=== PATIENT | female | born 2000 | race Two or more races ===

== ENCOUNTER 2025-09-22 22:22 | Inpatient (IN) | payer MEDICAID, OTHER ==
[~2025-09-22] VITALS: Ht 157.5 cm; Wt 108.4 kg
[2025-09-22] MEDS ORDERED: OXYTOCIN 10UNIT/ML 1ML VIAL IV ONE (22:23)
[2025-09-22] MEDS: OXYTOCIN 10UNIT/ML 1ML VIAL IM ONE (23:45)
--- NOTE | 2025-09-22 23:52 | DVHHP2 ---
OB CC & HPI Date Date of Admission: Sep 22, 2025 Patient Identification: : 3 Para: 2 EDC: Sep 30, 2025 EGA: 38.6wks Chief Complaints: Reason for admission: active labor History of Present Complaints 25 y/o IUP@38.6wks presents in active labor. States contractions began around 1800 q2 mins of strong intensity, states leaking of fluid around 2000. States she is in pain and ready to push. No records available. States she receives care at [facility], with Dr. Pollack. Denies complications. OB hx: NSVDx2, uncomplicated Past Medical History Cardiac: No pertinent Hx Pulmonary: No pertinent Hx Central Nervous System: No pertinent Hx GI: No pertinent Hx Hemotology/Oncology: No pertinent Hx Hepatobiliary: No pertinent Hx Psychiatric: No pertinent Hx Musculoskeletal: No pertinent Hx Rheumotologic: No pertinent Hx Infectious Disease: No peritnent Hx ENT: No pertinent Hx Renal/: No pertinent Hx Endocrine: No pertinent Hx Dermatology: No pertinent Hx Past Surgical History: No pertinent Hx Others Pt denies pertinent medical hx. No records available. OB History OB History Care: Other (None available, pt states adequate. ) Obstetrical Complications: None (per pt) Medical Complications: None (per pt) Allergies: Coded Allergies: NO KNOWN ALLERGIES (Unverified , 09/22/25) Allergies Denies Home Meds PNV Family & Social History Family/Social History Past Family/Social History: Denies Blood Type: Unknown Rubella: unknown RPR/VDRL: Unknown GBS Status: Unknown HBsAG: Unknown Review of Systems Constitutional: No symptom reported Ears, Nose, & Throat: No symptom reported Eyes: No symptom reported Pulmonary/Respiratory: No symptom reported Cardiovascular: No symptom reported Gastrointestinal: No symptom reported Genitourinary: No symptom reported Musculoskeletal: No symptom reported Skin: No symptom reported Psychiatric: No symptom reported Endocrine: No symptom reported Hemotologic/Lymphatic: No symptom reported OB Admission Exam Physical Exam Vitals: VSS, See CPN HEENT: TMs Normal, Fontanelles Normal, Nasal Mucosa Normal, Eyes non-injected, Oropharynx Normal, PERRLA, Moist Membranes, EOMI Heart: Rhythm Normal Lungs: Clear Abdomen: Gravid Extremities: Normal Reflexes: Normal Cervical Dilatation: 8cm Effacement: Other (90) Station: +3 Membranes: Intact Heart Rate: 130's (via doppler, unable to utilize EFM due to constant maternal position changes) Contractions on Admission: < 5 Minutes Apart Intensity: Moderate OB Plan Plan Admitting Diagnosis: 25yo IUP@38.6wks Active labor +FHTs Plan: Expectant Management Other Plan: P: Admit to L&D for expectant mgmt Informed consent obtained Doppler FHT q5min Routine labs ordered Anticipate Visit Coding OBGYN Date of Service: Sep 22, 2025 Billing Provider: NEEL DIXNO CNM MECHANICAL ENGINEERING TECHNICIAN Common Visit Codes: [id number] INP/OBS CARE (MOD) MECHANICAL ENGINEERING TECHNICIAN Procedure Codes: 22958-43- NON-STRESS TEST NOREEN TELLES STUDENTRIW Sep 22, 2025 23:52
--- NOTE | 2025-09-22 23:55 | LDN2 ---
Labor and Delivery Note Date 09/22/25 Age 25 3 Para 3 now EDC 09/30/25 EGA 38.6wks Diagnosis Active labor then precipitous Vaginal Delivery: VTX Vacuum Assisted: No Placenta: Spontaneous Sex: Female Weight pending Apgars 8/9 Nuchal Cord Transected: No Amniotic Fluid: Clear Anesthesia none Episiotomy: No Extension: No Repaired with n/a EBL QBL 100ml Labs to be drawn Complications none Conditions stable Hothouse Worker Somu Comments/Significant Med Kandice At 2254 this 25yo now delivered a viable Female by w/ APGARS 8/9. ROP presentation. placed skin to skin on pts chest. Cord clamped and cut after pulsation ceased. Cord blood sent. Pitocin IV bolus started. Intact 3- vessel cord placenta delivered spontaneously, Griffin, marginal cord insertion noted. Placenta sent to pathology. Patient had no anesthesia. Cervix/vagina/labia/perineum inspected (intact). No functioning IV access available, Pitocin 10units IM given. Fundus at U, firm, midline, and light lochia. QBL 100ml. VSS. Count correct x2. Patient to care and baby to couplet care, both stable. Visit Coding OBGYN Date of Service: Sep 22, 2025 Billing Provider: NEEL DIXON CNM RADIO DESPATCHER Common Visit Codes: PROCEDURE ONLY RADIO DESPATCHER Procedure Codes: 98469-[id number] DEL INCLUDING NOREEN TELLES STUDENTMDW Sep 22, 2025 23:55
[2025-09-23] VITALS (7 sets, daily range): BP systolic 103–121; BP diastolic 60–79; PULSE 62–77; RESP 16–18; TEMP 98–98.4; O2SAT 96–98
[2025-09-23] MEDS: IBUPROFEN 600 MG TAB PO PRN (00:26)
[2025-09-23] MEDS: PHISODERM TOP SOLN 240ML BTL TOP PRN (00:27)
[2025-09-23] MEDS: DERMOPLAST 60ML BOTTLE TOP PRN (00:27)
[2025-09-23] MEDS: WITCH HAZEL-GLYCERIN PAD TOP PRN (00:27)
[2025-09-23] MEDS: LACTATED RINGER'S 1,000 ML IV SCH (00:28)
[2025-09-23 00:47] LABS: Hematocrit 32.7 % (36.0-46.0); Hemoglobin 10.7 g/dL (12.2-16.2); Mean Corpuscular Hemoglobin 26.8 pg (28.0-32.0); Mean Corpuscular Volume 82.1 fL (80.0-100.0); Nucleated Red Blood Cells % 0.0 %
[2025-09-23 00:54] LABS: INR 0.93 (0.9-1.15); Partial Thromboplastin Time 24.1 SEC (24.5-34.5); Prothrombin Time 9.9 sec (9.3-11.8)
[2025-09-23 00:55] LABS: Alanine Aminotransferase 12 U/L (7-40); Albumin 4.3 g/dL (3.2-4.8); Anion Gap 13 (5-15); BUN/Creatinine Ratio 12.1 (10.0-20.0); Calcium 9.4 mg/dL (8.7-10.4); Carbon Dioxide 23 mmol/L (20-31); Chloride 103 mmol/L (98-107); Glucose 82 mg/dL (74-106); Sodium 139 mmol/L (136-145); Total Protein 7.6 g/dL (5.7-8.2)
[2025-09-23 00:56] LABS: Alkaline Phosphatase 163 U/L (46-116); Bilirubin, Total 0.3 mg/dL (0.2-1.0); Blood Urea Nitrogen 8 mg/dL (9-23); Potassium 3.5 mmol/L (3.5-5.1)
[2025-09-23] MEDS: ACETAMINOPHEN 325 MG TAB PO PRN (01:51)
[2025-09-23] MEDS: LACT. RINGERS/OXYTOCIN 20UNITS 500 ML IV ONE ×2 (04:59→05:00)
--- NOTE | 2025-09-23 05:50 | DVHPN2 ---
Progress Note Date Seen: Sep 23, 2025 Subjective S: bleeding is less, eating food without issues, denies lightheaded/dizziness, pain well controlled with oral medications, no concerns with urinating, passing flatus, no BM yet, ambulating well, bottle feeding well vital signs Vital Sign Date Time Temp Pulse Resp B/P (MAP) Pulse Ox O2 Delivery O2 Flow Rate FiO2 09/23/25 02:30 98.3 77 18 113/72 (86) 96 98.3 09/23/25 02:00 Room Air Total Intake and Output 09/22/25 09/22/25 09/23/25 15:00 23:00 07:00 Output Total 500 ml Balance -500 ml medications Current Medications Medications Dose Ordered Sig/Chary Route Start Time Stop Time Status Last Admin Dose Admin Lactated Ringer's 1,000 ml @ 125 mls/hr Q8H IV 09/22/25 23:45 09/23/25 00:28 125 MLS/HR Nighat Kern 1 pad PRN PRN TOP 09/22/25 23:45 09/23/25 00:27 1 PAD Sodium Lauryl Sulfate 240 ml PRN PRN TOP 09/22/25 23:45 09/23/25 00:27 240 ML Benzocaine 1 applic PRN PRN TOP 09/22/25 23:45 09/23/25 00:27 1 APPLIC Ibuprofen 600 mg Q6HP PRN PO 09/22/25 23:45 09/23/25 00:26 600 MG Acetaminophen 650 mg Q6HPRN PRN PO 09/22/25 23:45 09/23/25 01:51 650 MG Prenat Multivit/ Flipping Machine Operator/Iron/Folic Ac 1 DAILY PO 09/23/25 10:00 laboratory and microbiology Laboratory Tests 09/22/25 23:59 Test 09/22/25 23:59 Range/Units Serum Glucose 82 74-106 mg/dL Objective O: VSS Chest: heart sounds normal and lung sounds clear bilaterally Abd: soft, non-tender, fundus at U/firm/midline, active bowel sounds, no rebound or guarding Perineum: intact, no erythema/edema noted Ext: Non-tender, No edema, 2+ BLE DTRs Lochia: minimal See lab results Problems(with codes): (1) Precipitous delivery (2) (normal spontaneous vaginal delivery) (3) Intact perineum (4) Iron deficiency anemia Assessment/Plan A: 25yo now PPD#1 s/p Rubella Immune Bottle feeding baby Pain control with PO medications Bowel regimen P: Continue with routine PP care Plan discussed with: Patient Fluid Accumulation (N/A): N/A Reduced Poly Operator Strength (Non-Sev: N/A NOREEN TELLES STUDENTMDW Sep 23, 2025 05:50
[2025-09-23 05:55] LABS: Urine Protein, UAD 2+ (Negative)
[2025-09-23 05:56] LABS: Barbiturate Scree,Urine Neg (NEGATIVE)
[2025-09-23 05:57] LABS: Amphetamine Screen, Urine Neg (NEGATIVE); Benzodiazephine Screen, Urine Neg (NEGATIVE); Cannabinoid Screen, Urine Neg (NEGATIVE); Cocaine Screen, Urine Neg (NEGATIVE); Opiate Scree,Urine Neg (NEGATIVE); Phencyclidine Screen, Urine Neg (NEGATIVE)
[2025-09-23] MEDS ORDERED: PRENATAL VITAMIN TAB PO SCH (10:00)
--- NOTE | 2025-09-23 18:22 | DVHDS2 ---
NOREEN TELLES [facility] 09/23/25 1822: Physician Discharge Progress N Final Diagnosis: Problems List: (1) (normal spontaneous vaginal delivery) (2) 38 weeks gestation of (3) Precipitous delivery (4) Intact perineum (5) Iron deficiency anemia Condition on Discharge: Good Disposition: Home SNF Discharge Will this Physician continue t: Yes Discharge Instructions: Diet: Regular Activity: Light activity Follow Up Care: Discharge Statement: "Patient was advised to return to the ER or call 911 if any headaches, dizziness, shortness of breath, chest pain, abdominal pain, bleeding, fevers, or worsening of medical condition. Patient was counseled about treatment plan, medications, possible side effects, patientverbalized understanding. All questions were answered to the best of my ability. This discharge took greater then 30 minutes in planning, reviewing documentation, counseling the patient, and discussing with other team members." NEEL DIXON 09/23/25 1827: NOREEN TELLES [facility] Sep 23, 2025 18:22 NEEL DIXON [facility] Sep 23, 2025 18:27
[2025-09-23] MEDS ORDERED: FER325T PO (18:54)
[2025-09-23] MEDS ORDERED: IBU600T PO (18:54)
[2025-09-23] MEDS ORDERED: PREN-96 PO (18:54)
[2025-09-23] MEDS ORDERED: DOCU-94 PO (18:54)
--- NOTE | 2025-09-24 00:32 | DVHPN2 ---
Progress Note Date Seen: Sep 24, 2025 Subjective S: bleeding is less, eating food without issues, denies lightheaded/dizziness, pain well controlled with oral medications, no concerns with urinating, passing flatus, no BM yet, ambulating well, bottle feeding well. Would like to go home in the am. vital signs VSS Vital Sign Date Time Temp Pulse Resp B/P (MAP) Pulse Ox O2 Delivery O2 Flow Rate FiO2 09/23/25 23:18 98.4 72 16 119/73 (88) 98 98.4 09/23/25 18:30 Room Air 0.0 Total Intake and Output 09/23/25 09/23/25 09/24/25 15:00 23:00 07:00 Output Total 200 ml Balance -200 ml medications Current Medications Medications Dose Ordered Sig/Chary Route Start Time Stop Time Status Last Admin Dose Admin Lactated Ringer's 1,000 ml @ 125 mls/hr Q8H IV 09/22/25 23:45 09/23/25 00:28 125 MLS/HR Nighat Concha 1 pad PRN PRN TOP 09/22/25 23:45 09/23/25 00:27 1 PAD Sodium Lauryl Sulfate 240 ml PRN PRN TOP 09/22/25 23:45 09/23/25 00:27 240 ML Benzocaine 1 applic PRN PRN TOP 09/22/25 23:45 09/23/25 00:27 1 APPLIC Ibuprofen 600 mg Q6HP PRN PO 09/22/25 23:45 09/23/25 00:26 600 MG Acetaminophen 650 mg Q6HPRN PRN PO 09/22/25 23:45 09/23/25 01:51 650 MG Prenat Multivit/ Pediatric Audiologist/Iron/Folic Ac 1 DAILY PO 09/23/25 10:00 laboratory and microbiology Laboratory Tests 09/22/25 23:59 Test 09/22/25 23:59 Range/Units Serum Glucose 82 74-106 mg/dL Objective VSS Chest: heart sounds normal and lung sounds clear bilaterally Abd: soft, non-tender, fundus 1-U/firm/midline, active bowel sounds, no rebound or guarding Perineum: no erythema/edema noted Ext: Non-tender, No edema, 2+ BLE DTRs Lochia: minimal See lab results Problems(with codes): (1) Precipitous delivery (2) (normal spontaneous vaginal delivery) (3) Intact perineum Assessment/Plan A: 25yo now PPD#2 s/p Rubella Immune Bottle feeding baby Pain control with PO medications Bowel regimen P: D/C home today Rx sent to pharmacy precautions and preeclampsia warning signs reviewed F/U with primary OB office in 2 weeks Plan discussed with: Patient Fluid Accumulation (N/A): N/A Reduced Pressure Tester Strength (Non-Sev: N/A NOREEN TELLES STUDENTMDW Sep 24, 2025 00:32
--- NOTE | 2025-09-24 00:40 | DVHDS2 ---
Physician Discharge Progress N Final Diagnosis: Status post Condition on Discharge: Good Disposition: Home SNF Discharge Will this Physician continue t: Yes Discharge Instructions: Diet: Regular Activity: Light activity Activity comment: Nothing in Vagina for 6 weeks Medications: PNV, Colace Follow Up Care: Discharge Statement: "Patient was advised to return to the ER or call 911 if any headaches, dizziness, shortness of breath, chest pain, abdominal pain, bleeding, fevers, or worsening of medical condition. Patient was counseled about treatment plan, medications, possible side effects, patientverbalized understanding. All questions were answered to the best of my ability. This discharge took greater then 30 minutes in planning, reviewing documentation, counseling the patient, and discussing with other team members." Visit Coding OBGYN Date of Service: Sep 24, 2025 Billing Provider: NEEL DIXON CNM CROSSING TENDER Common Visit Codes: [id number] INP/OBS CARE(MOD) CROSSING TENDER Procedure Codes: 21253-[id number] DEL INCLUDING NOREEN TELLES STUDENTPAW Sep 24, 2025 00:39
--- NOTE | 2025-09-24 00:51 | DVHDS2 ---
Obstetrics Discharge Summary Obstetrics Discharge Summary Date of Admission: Sep 22, 2025 Date of Discharge: Sep 24, 2025 Reason For Admission: Onset of Labor Procedures: None Intrapartum Procedures: Spontaneous vaginal deliv Procedures: None Operative Complicat: None Discharge Diagnosis: Term -Delivered Discharge Information: Activity (as tolerated, no heavy lifting and nothing in the vagina for 6 weeks), Diet (Routine), Medications (rx sent), Instructions (Routine), Discharge to (Home), Accompanied by (partner), Discarge date (09/24/25) Visit Coding OBGYN Date of Service: Sep 24, 2025 Billing Provider: NEEL DIXON CNM SPRINKLER INSPECTOR Common Visit Codes: 17436-AVO/OBS DISCH DAY <30MIN NOREEN TELLES STUDENTMDW Sep 24, 2025 00:51
[2025-09-24 07:00] VITALS: BP 112/76; PULSE 60; RESP 18; TEMP 98; O2SAT 99
[2025-09-24 11:00] VITALS: BP 107/76; PULSE 63; RESP 16; TEMP 98.1; O2SAT 95
== END 2025-09-24 12:38 | disposition home or self-care (01) | DRG 560 ==
LOC: NUR 22:22 → OBSVTOIN 22:22 → LDRP 09-23 00:54
PROVIDERS: ADMIT Obstetrics & Gynecology; ATTEND Obstetrics & Gynecology
PROC: 10E0XZZ Delivery of Products of Conception, External Approach (ICD-10-PCS; principal; 2025-09-22)
DX: O80 Encounter for full-term uncomplicated delivery (principal); Z37.0 Single live birth; Z3A.38 38 weeks gestation of pregnancy
CPT/HCPCS: 36415; 59025; 59409; 80053; 80307; 81001; 81002; 85025; 85610; 85730; 86703; 86762; 86780; 86803; 86850; 86900; 86901; 87340; 94760; 94762; 96360; 96361; 96365; 96366; G0378